=== PATIENT | male | born 1955 | race Caucasian/White ===

== ENCOUNTER 2022-08-19 06:52 | Emergency (ER) | payer OTHER ==
[~2022-08-19] VITALS: Ht 170.2 cm; Wt 96.6 kg
--- NOTE | 2022-08-19 07:15 | NUR ---
patient c/o cp since 4am midsternal radiates to left and right chest. a/ox4. room air. tremors d/t parkinsons. to bed 2.
--- NOTE | 2022-08-19 07:17 | NUR ---
IV STARTED 20G R AC
--- NOTE | 2022-08-19 07:18 | NUR ---
labs collected and sent to lab
[2022-08-19 07:19] LABS: BASOPHILS # (AUTO) 0.1 K/uL (0.0-0.2); BASOPHILS % (AUTO) 0.8 % (0.0-2.0); HEMATOCRIT 47 % (39-51); HEMOGLOBIN 15.7 g/dL (13.5-17.5); LYMPHOCYTES # (AUTO) 2.1 K/uL (0.8-4.8); LYMPHOCYTES % (AUTO) 26.8 % (20.0-44.0); MEAN CORPUSCULAR HGB CONC 34 g/dl (31.0-36.0); MEAN CORPUSCULAR VOLUME 84 fL (80-96); MONOCYTES # (AUTO) 0.9 K/uL (0.1-1.30); MONOCYTES % (AUTO) 11.7 % (2.0-12.0); NEUTROPHILS # (AUTO) 4.5 K/uL (1.8-8.9); NEUTROPHILS % (AUTO) 57.7 % (43.0-81.0); PLATELET COUNT (AUTO) 222 K/uL (150-450); RED BLOOD CELL COUNT(AUTO) 5.54 MIL/uL (4.5-6.0); WHITE BLOOD COUNT (AUTO) 7.8 K/uL (4.3-11.0)
--- NOTE | 2022-08-19 07:21 | NUR ---
xray at bedside
--- NOTE | 2022-08-19 07:30 | NUR ---
RECEIVED PATIENT NO SIGN AND SYMPTOMS OF DISTRESS, ON MONITOR, EVEN BREATHING UNLABORED, NO FURTHUR ORDERS AT THIS TIME. CARE CONTINUES
[2022-08-19 07:31] LABS: CALCIUM, SERUM 9.1 mg/dL (8.5-10.1); CARBON DIOXIDE 30 mmol/L (21-32); CHLORIDE 98 mmol/L (98-107); CREATININE 0.9 mg/dL (0.6-1.3); GLUCOSE 233 mg/dL (74-106); POTASSIUM 4.1 mmol/L (3.5-5.1); SODIUM SERUM 136 mmol/L (136-145); UREA NITROGEN, BLOOD 19 mg/dL (7-18)
--- NOTE | 2022-08-19 09:10 | NUR ---
Alejandrina AT BEDSIDE BLD DRAWN FOR SECOND TROPONIN MD JASMINE
--- NOTE | 2022-08-19 10:50 | NUR ---
IV removed. Catheter intact and site benign. Pressure and 4x4 applied to site. No bleeding noted.
--- NOTE | 2022-08-19 10:50 | NUR ---
Patient discharged to home in stable condition. Written and verbal after care instructions given. Patient verbalizes understanding of instruction.
[2022-08-19 11:43] VITALS: BP 128/71
== END 2022-08-19 10:50 | disposition home or self-care (01) ==
LOC: ER 06:53
DX: R07.9 Chest pain, unspecified (principal); G20 Parkinson's disease; E11.9 Type 2 diabetes mellitus without complications
CPT/HCPCS: 36415; 71045-TC; 80048-TC; 83880; 84484-TC; 85025-TC